=== PATIENT | female | born 1985 | race Caucasian/White ===

== ENCOUNTER 2017-11-23 09:44 | Emergency (ER) | payer BC ==
[~2017-11-23] VITALS: Ht 162.6 cm; Wt 90.7 kg
[~2017-11-23 09:44] MED LIST: ALPRAZOLAM 0.50.5 M1 PO; BIRTH CONTROL; ESTRACE0.5 MG PO; FLEXERIL PO; HYDROCODONE-AP1 EAC6 PO; IBUPROFEN 800800 M1 PO; LEXAPRO 10 MG T10 M1 PO; NAPROSYN500 MG PO; NORCO 5-325 TA1 EACH PO; NORFLEX100 MG PO; OMEPRAZOLE 20 M20 MG PO; ONDANSETRON HCL4 M2 PO; PERCOCET 5-3251 EACH PO; PRENATAL PO; PROZAC 20 MG20 MG PO; PROZAC20 MG PO; TYLENOL P.M. E1 EAC3; ZOFRAN ODT4 MG PO; ZOFRAN4 MG PO
[2017-11-23 09:59] LABS: URINE BILIRUBIN NEGATIVE (Negative); URINE BLOOD NEGATIVE (Negative); URINE CLARITY CLEAR; URINE COLOR YELLOW; URINE GLUCOSE-RANDOM* NEGATIVE (Negative); URINE KETONES NEGATIVE (Negative); URINE LEUKOCYTES NEGATIVE (Negative); URINE NITRITE NEGATIVE (Negative); URINE PROTEIN (DIPSTICK) NEGATIVE (Negative); URINE SPECIFIC GRAVITY >= 1.030 (1.005-1.035); URINE UROBILINOGEN 0.2 E.U./dl (0.2-1.0)
[2017-11-23] MEDS ORDERED: TRAZODONE 150150 M1 PO (10:05)
[2017-11-23 10:15] LABS: BASOPHILS 0.5 % (0.0-2.0); EOSINOPHILS 1.5 % (0.0-3.0); HEMATOCRIT 43.2 % (37.0-47.0); HEMOGLOBIN 15.1 gm/dL (12.0-15.0); LYMPHOCYTES 27.3 % (24.0-44.0); MCH 31.5 pg (26.0-34.0); MCV 89.9 fL (80.0-100.0); MONOCYTES 6.8 % (1.0-8.0); PLATELET COUNT 245 thou/uL (150-400); POLYS 63.9 % (36.0-66.0); RDW 13.2 % (10.5-14.5); WBC 9.3 thou/uL (4.0-11.0)
[2017-11-23 10:23] LABS: ANION GAP 9 mmol/L (7-16); BUN 16 mg/dL (7-18); CHLORIDE 104 mmol/L (98-107); CO2 25 mmol/L (21-32); CREATININE 0.8 mg/dL (0.6-1.0); GLUCOSE 106 mg/dL (74-106); POTASSIUM 4.1 mmol/L (3.5-5.1); SODIUM 138 mmol/L (136-145)
[2017-11-23 10:29] LABS: ALBUMIN 4.1 g/dL (3.4-5.0); DIRECT BILIRUBIN < 0.1 mg/dL (<0.1-0.3); LIPASE 110 U/L (73-393); SGOT 13 U/L (15-37); SGPT 19 U/L (30-65); TOTAL BILIRUBIN 0.3 mg/dL (<0.1-1.0); TOTAL PROTEIN 7.8 g/dL (6.4-8.2)
[2017-11-23] MEDS ORDERED: NORCO 5-325 TA1 EACH PO (11:43)
[2017-11-23 11:59] VITALS: BP 122/77
== END 2017-11-23 12:00 | disposition home or self-care (01) ==
LOC: ER 09:44
PROVIDERS: Emergency Medicine
DX: R10.32 Left lower quadrant pain (principal); R11.2 Nausea with vomiting, unspecified; M94.0 Chondrocostal junction syndrome [Tietze]; F17.210 Nicotine dependence, cigarettes, uncomplicated

== ENCOUNTER 2018-07-10 20:11 | Emergency (ER) | payer BC ==
[~2018-07-10] VITALS: Ht 162.6 cm; Wt 86.2 kg
[~2018-07-10 20:11] MED LIST changes: +TRAZODONE 150150 M1 PO
[2018-07-10] MEDS ORDERED: ZOLOFT50 MG PO (20:18)
[2018-07-10] MEDS ORDERED: HYDROCODONE-AP1 EAC6 PO (21:47)
[2018-07-10] MEDS ORDERED: IBUPROFEN 600600 M1 PO (21:47)
[2018-07-10 22:27] VITALS: BP 134/88
== END 2018-07-10 22:28 | disposition home or self-care (01) ==
LOC: ER 20:11
DX: S92.351A Displaced fracture of fifth metatarsal bone, right foot, initial encounter for closed fracture (principal); F17.210 Nicotine dependence, cigarettes, uncomplicated; Z98.890 Other specified postprocedural states; W18.39XA Other fall on same level, initial encounter; Y92.89 Other specified places as the place of occurrence of the external cause; Y93.89 Activity, other specified; Y99.8 Other external cause status

== ENCOUNTER 2019-06-13 11:03 | Emergency (ER) | payer OTHER ==
[~2019-06-13] VITALS: Ht 162.6 cm; Wt 83.9 kg
[~2019-06-13 11:03] MED LIST changes: +IBUPROFEN 600600 M1 PO; +SERTRALINE HCL50 MG PO
[2019-06-13 11:45] LABS: ABSOLUTE NEUTROPHILS 8.3 thou/uL (1.4-8.2); BASOPHILS 0.3 % (0.0-2.0); EOSINOPHILS 1.9 % (0.0-3.0); HEMATOCRIT 46.5 % (37.0-47.0); LYMPHOCYTES 18.1 % (24.0-44.0); MCH 31.1 pg (26.0-34.0); MCHC 34.4 g/dL (28.0-37.0); MCV 90.5 fL (80.0-100.0); MONOCYTES 5.6 % (1.0-8.0); PLATELET COUNT 290 thou/uL (150-400); POLYS 74.1 % (36.0-66.0); RBC 5.14 mil/uL (4.20-5.00); RDW 13.2 % (10.5-14.5); WBC 11.2 thou/uL (4.0-11.0)
[2019-06-13 11:54] LABS: CALCIUM 9.2 mg/dL (8.5-10.1); CREATININE 0.8 mg/dL (0.6-1.0); POTASSIUM 3.7 mmol/L (3.5-5.1)
[2019-06-13 11:59] LABS: ALBUMIN 4.3 g/dL (3.4-5.0); TOTAL BILIRUBIN 0.5 mg/dL (<0.1-1.0)
[2019-06-13 13:13] LABS: URINE BILIRUBIN NEGATIVE (Negative); URINE BLOOD NEGATIVE (Negative); URINE CLARITY CLEAR; URINE COLOR YELLOW; URINE GLUCOSE-RANDOM* NEGATIVE (Negative); URINE KETONES TRACE (Negative); URINE LEUKOCYTES-REFLEX NEGATIVE (Negative); URINE NITRITE-REFLEX NEGATIVE (Negative); URINE PROTEIN (DIPSTICK) NEGATIVE (Negative); URINE SPECIFIC GRAVITY 1.015 (1.005-1.035); URINE UROBILINOGEN 0.2 E.U./dl (0.2-1.0)
[2019-06-13] MEDS ORDERED: NORCO 5-325 TA1 EAC1 PO (14:48)
[2019-06-13] MEDS ORDERED: ZOFRAN ODT4 MG PO (14:49)
[2019-06-13] MEDS ORDERED: FLAGYL500 M1 PO (14:50)
[2019-06-13 14:56] VITALS: BP 147/69
== END 2019-06-13 14:59 | disposition home or self-care (01) ==
LOC: ER 11:03
PROVIDERS: Nurse Practitioner Family
DX: N83.202 Unspecified ovarian cyst, left side (principal); N83.201 Unspecified ovarian cyst, right side; N76.0 Acute vaginitis; B96.89 Other specified bacterial agents as the cause of diseases classified elsewhere; F17.210 Nicotine dependence, cigarettes, uncomplicated